=== PATIENT | female | born 1970 | race Caucasian/White ===

== ENCOUNTER 2016-10-07 09:59 | Emergency (ER) | payer OTHER ==
[~2016-10-07] VITALS: Ht 157.5 cm; Wt 65.9 kg
[~2016-10-07 09:59] MED LIST: no med; no medications
[2016-10-07 10:04] VITALS: BP 139/96; PULSE 70; RESP 16; O2SAT 100
--- NOTE | 2016-10-07 10:15 | ED.REPORT ---
HPI-Back Pain 40 and Over Date of Service October 07, 2016 ED Provider: Sandeep Torres DO The pt is a 46 y/o female w/ a hx of smoking, alcohol use, and distant IV drug use (2010) presenting to the ED complaining of lower back and abdominal pain onset yesterday. The pain worsens w/ movement and she believes it may be due to a kidney stone. She denies any loss of bowel or bladder function, rash, vaginal discharge, vomiting, fever, or pain radiating down her legs. The pt went to Urgent Care last night where she gave a urine sample and was told the results were negative for kidney disease. Her LMP was normal. The pt wants to try a Toradol shot and is comfortable using ibuprofen, but is allergic to aspirin. Nursing Notes Stated Complaint: SEVERE LOW BACK AND ABDOMINAL PAIN Chief Complaint: Back Pain or Injury Nursing Notes Reviewed: Yes Allergies: Coded Allergies: NSAIDS (Non-Steroidal Anti-Inflamma (Verified Allergy, Severe, 04/22/10) aspirin (Verified Allergy, Severe, 04/22/10) Scheduled Metronidazole (Flagyl) 500 Mg Tablet 500 MG PO BID Scheduled PRN Ibuprofen (Ibuprofen) 800 Mg Tablet 800 MG PO TID PRN PRN For Pain Oxycodone (Roxicodone) 5 Mg Tablet 2.5-5 MG PO Q4H PRN PRN For Pain Miscellaneous Medications ([no med]) ([no medications]) NO medications were ordered for you at the time of your discharge. General Time Seen by MD: 10:13 Chief Complaint Back pain Hx Obtained From: Patient Arrived By: Walk-in Sudden in Onset?: No Onset Occurred: Yesterday Symptom Duration: Since onset Recent Healthcare: No recent hospitalization, Recent doctor visit Past Medical History Past Medical History Depression Anxiety PTSD Past Surgical History L ankle surgery Smoking History Smoker Current Status UNK Social History Alcohol Use: "Social" Drug Use: Denies drug use (Since 2010) Ambulatory Status Independent Review of Systems Denies loss of bowel or bladder control, vaginal discharge, or pain radiating down legs Constitutional: Denies: Fever GI: Reports: Abdominal pain, Denies: Vomiting Musculoskeletal: Reports: Back pain (Lower) Complete sys rev & neg: except as marked. Skin: Denies Rash Physical Exam Initial Vital Signs Vital Signs (First) Date Time Temp Pulse Resp B/P Pulse Ox O2 Delivery O2 Flow Rate FiO2 10/07/16 10:04 36.3 70 16 139/96 100 Room Air Initial VS: Reviewed General/Constitutional: Awake, Alert Distress / Hydration: Positive: Distress mild Respiratory / Chest: Atraumatic, Breath sounds NL, Breath sounds = bilat, No respiratory distress, No rales, No rhonchi, No wheezing Cardiovascular: Heart rate NL, Regular rhythm, Heart sounds NL Abdomen: Atraumatic, Soft, Non-tender Back: Inspection NL, Full range of motion Mild R sided flank tenderness w/o specific CVA tenderness Neurologic: Oriented X3, Speech NL Neck: Atraumatic, Supple, Full range of motion Skin: Atraumatic, Color NL, No rash, Warm, Dry Head / Eyes: Atraumatic, Normocephalic Female Genitourinary: Student Development Coordinator present, Atraumatic, External genitalia NL, No discharge, No cervical motion tend, No adnexal mass, No adnexal tenderness, No lesions or rash Scant vaginal bleeding consistent w/ menses Psychiatric: Affect NL, Mood NL Interpretation & Diagnostics CT KUB IMPRESSION: No evidence of urolithiasis nor urinary obstruction. Normal appendix. No acute abnormality identified. Dictated by: Mac Orozco M.D. on 10/07/2016 at 11:17 Approved by: Mac Orozco M.D. on 10/07/2016 at 11:21 Lab Results Interpretation Result Diagram: 10/07/16 1145 10/07/16 1145 Test 10/07/16 10:28 10/07/16 11:45 Hold Urine Received (Received) White Blood Count 5.4th/mm3 (3.8-10.1) Red Blood Count 4.54mil/mm3 (3.90-5.20) Hemoglobin 13.9g/dL (12.0-15.6) Hematocrit 41.1% (35.0-46.0) Mean Corpuscular Volume 90.5fL (81-100) Mean Corpuscular Hemoglobin 30.6pg (27.0-35.0) Mean Corpuscular Hemoglobin Concent 33.8% (32.0-37.0) Red Cell Distribution Width 13.6% (12.3-15.4) Platelet Count 176bil/L (150-400) Neutrophils (%) (Auto) 60.0% (40-74) Lymphocytes (%) (Auto) 26.7% (14-46) Monocytes (%) (Auto) 8.3% (4-12) Eosinophils (%) (Auto) 4.4% (0-5) Basophils (%) (Auto) 0.6% (0-3) Sodium Level 139mEq/L (134-144) Potassium Level 4.8mEq/L (3.5-5.2) Chloride Level 104mEq/L (97-108) Carbon Dioxide Level 25mmol/L (18-29) Blood Urea Nitrogen 14mg/dL (6-24) Creatinine 0.87mg/dL (0.57-1.00) Estimat Glomerular Filtration Rate 100mL/min (>59) Glucose Level 90mg/dL (60-99) Calcium Level 8.8mg/dL (8.5-10.1) Total Bilirubin 0.5mg/dL (0.0-1.2) Aspartate Amino Transf (AST/SGOT) 19U/L (0-50) Alanine Aminotransferase (ALT/SGPT) 14U/L (0-32) Alkaline Phosphatase 47U/L (25-150) Total Protein 6.3g/dL (6.4-8.4) Albumin 4.0g/dL (3.4-5.0) Hold Smith Top Tube Received (Received) Re-Eval/Medical Decision Med Decision/Clinical Course Patient presents with what sounds like muscular back pain versus kidney stone, she has scant blood in her urine with a normal CT noncontrast of the abdomen pelvis. Given concern of pelvic exam is performed and is completely normal, there is no evidence of pelvic inflammatory disease, there are no other adnexal masses or any reproducible pain, she did have some associated blood which looks to be related to her period. Her wet mount was positive for clue cells and she will be treated for BV. Overall my suspicion for gonorrhea and Chlamydia is exceedingly low and she is not treated with antibiotics to cover this at this time. Return and follow-up precautions given. Source of Hx: Old records Re-Evaluation/Progress #1: Time of Eval: 11:27 Re-Evaluation/Progress Note: Pt rechecked. Pt concerned she could have pelvic infection, discussed doing a pelvic exam and to order labs. Re-Evaluation/Progress #2: Time of Eval: 12:06 Re-Evaluation/Progress Note: Rechecked pt. Performed pelvic exam. The diagnosis and plan for discharge are discussed. The pt understands and agrees with the plan. All questions are addressed at this time. Counseled Regarding: Diagnosis, Lab results, Need for follow-up, When/why to return to ED Discharge & Departure Impression: Primary Impression: Back pain Additional Impression: Bacterial vaginosis Disposition: Home Discharge Condition All VS Reviewed: Yes Condition: Stable Additional Instructions: Thank you for entrusting us with your care today. You were seen today for back pain and were found to have bacterial vaginosis. Take Ibuprofen and Oxycodone as needed for the pain and Flagyl for the bacterial vaginosis. Follow up this week for further evaluation. Return to the emergency department if you experience any loss of bowel or bladder control, numbness or weakness in your legs, high fever, or any other concerns. Referrals: Adeel Shearer MD (PCP) Scribe Attestation Portions of this note were transcribed by Toni Arambula and Matti Barrett. I, Dr. Jael Seo personally performed the history, physical exam and medical decision- making; I reviewed and confirmed the accuracy of the information in the transcribed note. Signed by: Toni Arambula and Kuldeep Schumacher, and [phone]. copies to: Adeel Shearer MD, Timothy Valerie SHIPMAN October 07, 2016 10:14 Toni Arambula October 07, 2016 10:25 MATTI BARRETT October 07, 2016 11:12
--- NOTE | 2016-10-07 11:22 | DRSVH ---
PROCEDURE: CT KUB ([id number]) INDICATIONS: R sided flank pain, hematuria TECHNIQUE: Noncontrast 5 mm thick sections acquired from the diaphragms to the symphysis. 5 mm thick coronal an d sagittal reformats were then performed. For radiation dose reduction, the following was used: aut omated exposure control, adjustment of mA and/or kV according to patient size. COMPARISON: None. FINDINGS: Image quality: Excellent. Lung bases: Lung bases are clear. Heart size is normal. Urinary system: Both kidneys are normal in size. No kidney stones. No hydronephrosis or perinephri c fat stranding. Both ureters appear non-dilated throughout their expected courses. Bladder wall th ickness is normal; no calcified bladder stones. There are presumed bilateral pelvic phleboliths in th e regions of the distal ureters. Other solid organs: Liver and spleen are normal in size. Gallbladder unremarkable. Pancreas is nor mal in contours. No adrenal nodules. Peritoneum and bowel: Unenhanced bowel loops demonstrate normal wall thickness and caliber. No free fluid or air. The appendix appears normal Nodes and vessels: No retroperitoneal or mesenteric adenopathy by size criteria. Aorta and inferior vena cava are normal in caliber. Abdominal wall: No ventral hernias. Pelvis: No free pelvic fluid. No inguinal hernias or adenopathy. Bones: No suspicious bony lesions. No vertebral body compression fractures. IMPRESSION: No evidence of urolithiasis nor urinary obstruction. Normal appendix. No acute abnormality identified. Dictated by: Mac Orozco M.D. on 10/07/2016 at 11:17 Approved by: Mac Orozco M.D. on 10/07/2016 at 11:21
[2016-10-07 11:52] LABS: BASOPHILS % (AUTO) 0.6 % (0-3); EOSINOPHILS % (AUTO) 4.4 % (0-5); MONOCYTES % (AUTO) 8.3 % (4-12); Mean Corpuscular Hemoglobin 30.6 pg (27.0-35.0); Mean Corpuscular Volume 90.5 fL (81-100); Platelet Count 176 bil/L (150-400)
[2016-10-07] MEDS ORDERED: METR500T PO (12:56)
[2016-10-07] MEDS ORDERED: IBUP800T28 PO (12:57)
[2016-10-07] MEDS ORDERED: OXYC-474 PO (12:57)
[2016-10-07 13:02] VITALS: BP 147/94; PULSE 64; O2SAT 100
== END 2016-10-07 13:01 | disposition home or self-care (01) ==
LOC: SED 09:59
DX: M54.9 Dorsalgia, unspecified (principal); N76.0 Acute vaginitis; Z88.6 Allergy status to analgesic agent
CPT/HCPCS: 36415; 74176; 80053; 81025; 85025; 87210; 87491; 87591; 96372; 99285; J1885